=== PATIENT | female | born 1990 | race African-American/Black ===

== ENCOUNTER 2016-05-02 19:15 | Emergency (ER) | payer OTHER ==
[~2016-05-02 19:15] MED LIST: DARVOCET-N 1001 TAB PO; IBUPROFEN PO; MACROBID100 MG PO; PHENERGAN PO; PRENATAL1 TA1 PO
== END 2016-05-02 19:34 | disposition home or self-care (01) ==
LOC: CFTX 19:15
DX: H66.91 Otitis media, unspecified, right ear (principal); F17.200 Nicotine dependence, unspecified, uncomplicated
CPT/HCPCS: 87651; 99282; 99283